=== PATIENT | male | born 1945 | race Caucasian/White ===

== ENCOUNTER 2024-09-19 10:00 | Outpatient (RCR) | payer MEDICARE, SELFPAY ==
--- NOTE | 2024-08-29 15:34 | PT.OPEX ---
[facility] Eval Start: 08/29/24 14:04 Freq: Status: Active Protocol: Document 08/29/24 14:05 CRP (Rec: 08/29/24 15:28 CRP [id number]) E-signed By Francisco Muniz PT Physical Therapy Outpatient Evaluation Insurance Information Recert Due Date 11/27/24 Insurance Name Medicare B,are Medical Diagnosis Scoliosis LBP Referring MD Dr He Subjective Subjective Chronic back issues that are on and off. Lately there is extreme stiffness of the low back with R side getting knotted up. Can have sharp pains at the base of the spine . Sharp pain will increase with bending down to pick something up. Walking will generally cause tightness/ stiffness and a limp if walking more that 1/2 mile. Cannot stand much more than 15 minutes without the extreme tightness into the lower back. Does try to do some strengthening but this can cause pain. Sometimes the right hip can feel like it locks up. Did have injection in low back that helped tingling/numbness into his les . Pain Comments Current Work Status Retired Objective Other/Pertinent Objective Posture: flattened lumbar spine Trunk ROM: flex mod/jose de jesus dec with LBP, bilat SB jose de jesus dec with LBP, R rot min dec, L rotation mod dec. Bilat hip ROM: flex WNL bilat, ER 30 deg bilat, IR 5-10 deg bilat MMT: myotomes WNL bilat LEs. Abdominal strength 4+/5. Palpation: palpable pain bilat lumbar paraspinals SLR testing: negative bilat for pain. R foot tingling at 80 degrees on R. Assessment Assessment/Impression Pt presents to PT with a long hx of LBP and past surgery related to thoracolumbar spine scoliosis. 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 This is characterized by painful loss of trunk ROM, painful myofascial involvement, poor lumbopelvic motor control and bilat hip stiffness. Skilled PT is necessary to incorporate ther ex, nm iza, manual therapy and pt education to decrease pain and improve functional mobility. Primary Functional Limitations Standing Walking Bending Lifting sports specialist Plan of Care Rehabilitation Potential Excellent Physical Therapy Goals 1. Pt will be independent with HEP in 8 weeks. 2. Pt will stand as needed to socialize or tend to self cares without c.o in 10 weeks. 3. 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 Coordination/Communication With Referral Source Treatment Plan/Direct Interventions Manual Therapy,Neuromuscular Re-ed,Self-Care/Home Management,Therapeutic Activities,Therapeutic Exercises Frequency/Duration 1-2x/wk for 12 weeks Patient Will Be Discharged From Therapy Completion of LTG(s),Skills Plateau,Independent w/HEP, Independently Progressing Evaluation Billing Untimed Code Treatment Minutes 40 Complexity Moderate Certification Information Initial Certification Date 08/29/24 Ending Certification Date 11/27/24 Provider Signature Required Yes Provider Signature Shows Agreement With POC & Medical Necessity Physician NPI Number Write NPI# Here Physician Comment/Change : Physician Signature & Date Requested Please Sign/Date Here
== END 2025-01-17 23:59 | disposition home or self-care (01) ==
PROVIDERS: PCP Family Medicine; Visit Provider Family Medicine
DX: M41.9 Scoliosis, unspecified (principal); M54.50 Low back pain, unspecified; Z51.89 Encounter for other specified aftercare
CPT/HCPCS: 97110; 97140; 97162